=== PATIENT | female | born 1980 | race Caucasian/White ===

== ENCOUNTER → 2017-01-19 | Outpatient (CLI) | payer BC ==
[~2017-01-19] MED LIST: AMPH10TA2 PO; AMPH20TA2 PO; FLUO10CA48 PO; LAMO100T16 PO; NORGTAB39 PO; SPR25 PO
--- NOTE | 2017-01-19 11:09 | DIAGNOSTIC IMAGING REPORT ---
LEFT WRIST MIN 3 VIEWS ROUTINE CLINICAL HISTORY: Left wrist pain status post trauma COMPARISON: None. DISCUSSION: No fractures or dislocations are visualized. IMPRESSION: No acute fractures or dislocations identified. Electronically signed by: Jurgen Richardson M.D. 01/19/2017 11:08 AM Dictated Date/Time: 01/19/2017 11:07 AM
== END | disposition home or self-care (01) ==
LOC: C.RAD1850 10:48
PROVIDERS: ATTEND Family Medicine
DX: S69.92XA Unspecified injury of left wrist, hand and finger(s), initial encounter (principal); M25.532 Pain in left wrist; X58.XXXA Exposure to other specified factors, initial encounter

== ENCOUNTER 2021-01-21 10:00 | Inpatient (IN) ==
[2021-01-21] MEDS ORDERED: OXYTOCIN 30 UNITS/500 ML BAG IV PRN (10:04)
[2021-01-21] MEDS ORDERED: PENICILLIN G POTASSIUM 6 MU in DEXTROSE 5% 250 ML IV ONE (10:15)
[2021-01-21] MEDS ORDERED: MAG SULFATE 4GM BOLUS FROM BAG IV ONE (10:15)
[2021-01-21 10:28] LABS: Hematocrit (blood only) 38.6 % (37-47); Hemoglobin 12.8 g/dL (12.0-16.0); Mean Corpuscular Hgb Conc 33.2 g/dL (32-36); Mean Corpuscular Volume 87.3 fL (80-100); Mean Platelet Volume 9.3 fL (7.4-10.4); Platelet Count 373 K/uL (130-400); RDW Coefficient of Variation 13.5 % (11.5-14.5); RDW Standard Deviation 42.5 fL (36.4-46.3); Red Blood Count 4.42 M/uL (4.2-5.4); White Blood Count 10.12 K/uL (4.8-10.8)
--- NOTE | 2021-01-21 10:40 | History & Physical Report ---
Date of Service January 21, 2021 Assessment & Plan Admission and Anticipated Discharge Date Admission Date: January 21, 2021 40 yo female with IUP at 37 weeks with chronic hypertension and super imposed PIH with 2+ proteinuria at L&D with BP's that meet severe criteria PIH labs pending. will begin IOL with cervical marin and Pitocin will start MgSO4 prophylaxis as well. antihypertensives as needed History of Present Illness Primary Care Provider: NO PCP Patient is a 40 yo female EDC 02/05/21 IVF , who presented for scheduled OB visit and was noted to have elevated BP's of 160/110 twice. She has had some mild headaches, stomach upset and nausea recently but no specific epigastric pain or shoulder pain. has been complicated by GDM on insulin for which her sugars have been reasonably controlled. EFW and AC were in 80%tile range at 36 weeks. She also has chronic Hypertension on Nifedipine.BP's have been good until today. She also has hypothyroidism treated with replacement thyroxine. GBS Positive Allergies Allergy/AdvReac Type Severity Reaction Status Date / Time amitriptyline Allergy Verified 01/21/21 09:02 Home Medications Medication Instructions Recorded Confirmed Type AMPHETAMINE-DEXTROAMPHETAMINE 10MG 10 mg PO DAILY PRN #0 tab 05/02/16 01/21/21 History (ADDERALL 10MG) aspirin 81 mg tablet,delayed 81 mg PO DAILY 07/16/20 01/21/21 History release cyclobenzaprine 10 mg tablet 10 mg PO HS 07/16/20 01/21/21 History levothyroxine 50 mcg tablet 50 mcg PO DAILY 07/16/20 01/21/21 History nifedipine 30 mg tablet,extended 30 mg PO DAILY 07/16/20 01/21/21 History release prenat.vits,rick,khj-itto-ewnpc 1 tab PO DAILY 07/16/20 01/21/21 History sertraline 100 mg tablet 100 mg PO DAILY 07/16/20 01/21/21 History acetone (urine) test #50 ea 09/26/20 01/21/21 Rx blood sugar diagnostic #150 ea 09/26/20 01/21/21 Rx blood-glucose meter #1 ea 09/26/20 01/21/21 Rx lancets #102 ea 09/26/20 01/21/21 Rx insulin syringe-needle U-100 0.3 #50 ea 12/19/20 01/21/21 Rx mL 31 gauge x 11/30" Patient History Medical History Hx of migraines Surgical History History of hysteroscopy Family History Sister Depression Grandmother (Maternal) Epilepsy Pancreatic cancer Father Glaucoma Grandmother (Paternal) Breast cancer Social History Smoking Status: Never smoker marital status: marital status details: Stas (44) [phone] Current Living Situation: Spouse Current Living Situation Comment: lives with spouse, 1 dog. current occupational status: employed current occupation: Psychologist at [employer] Review of Systems All systems reviewed & are unremarkable except as noted in HPI & below Physical Exam Constitutional: WD/WN, vitals as above Respiratory: normal respiratory effort, lungs clear to auscultation Cardiovascular: RRR, no murmur, no edema Gastrointestinal (Abdomen): normal bowel sounds, soft, nontender, no hepatosplenomegaly Psychiatric: A+Ox3, euthymic affect Genitourinary: OB Exam Abdomen: + vertex, + estimated weight (8-9 pounds) and + irregular contractions Manual OB Exam: + cervical dilation (closed), + cervical effacement 10% and + station high OB Exam Monitor Tracing: + external FHT monitor used, + external uterine monitor used, + category I and + normal FHT variability Results & Data ([facility]) Vital Signs (Past 12 Hours) Vital Signs Pulse BP 01/21/21 10:22 100 H 177/96 H 01/21/21 10:18 88 186/109 H 01/21/21 10:12 88 183/94 H Coding Level of Care Code None
[2021-01-21] MEDS: LACTATED RINGER'S 1,000 ML IV PRN (10:51)
[2021-01-21] MEDS: MAGNESIUM SULFATE / WTR 40 GM/1,000 ML BAG IV SCH (10:53)
[2021-01-21 10:59] LABS: Alanine Aminotransferase 16 U/L (12-78); Albumin Level 2.4 gm/dl (3.4-5.0); Aspartate Aminotransferase 19 U/L (15-37); BUN Creatinine Ratio 22.5 (10-20); Bilirubin Direct < 0.1 mg/dl (0-0.2); Blood Urea Nitrogen 14 mg/dl (7-18); Calcium 8.7 mg/dl (8.5-10.1); Carbon Dioxide 26 mmol/L (21-32); Chloride 106 mmol/L (98-107); Est GFR (African American) 129.4 ml/min; Est GFR (Non-African American) 111.6 ml/min; Glucose 70 mg/dl (70-99); Potassium 4.3 mmol/L (3.5-5.1); Sodium 136 mmol/L (136-145)
[2021-01-21 11:01] LABS: Albumin Globulin Ratio 0.6 (0.9-2); Alkaline Phosphatase 191 U/L (45-117); Bilirubin,Total 0.3 mg/dl (0.2-1); Globulin 3.9 gm/dl (2.5-4.0); Total Protein 6.3 gm/dl (6.4-8.2)
[2021-01-21] MEDS ORDERED: NIFEdipine 10 MG CAP PO STA ×4 (11:01→15:20)
[2021-01-21 11:09] LABS: Total Protein Urine Random 153.7 mg/dl (0-11.9)
[2021-01-21] MEDS: OXYTOCIN 30 UNITS/500 ML BAG IV PRN (13:10)
[2021-01-21] MEDS: PENICILLIN G POTASSIUM 3 MU in DEXTROSE 5% 100 ML IV PRN ×3 (16:00→23:49)
[2021-01-21] MEDS: ACETAMINOPHEN 325 MG TAB PO PRN (16:45)
[2021-01-21] MEDS: NIFEdipine EXTENDED REL 30 MG TABCR PO SCH (21:00)
[2021-01-21] MEDS ORDERED: LABETALOL HCL IV 5 MG/ML 20ML IV STA (22:20)
[2021-01-21] MEDS ORDERED: BUTORPHANOL TARTRATE 1 MG/ML VIAL ONE (22:23)
[2021-01-21] MEDS: BUTORPHANOL TARTRATE 1 MG/ML VIAL IV PRN (22:26)
--- NOTE | 2021-01-22 02:03 | Obstetrical Progress Note ---
Date of Service January 22, 2021 Assessment & Plan Admission and Anticipated Discharge Date Admission Date: January 21, 2021 Subjective had good relief from IV stadol. headache has returned but feels it may be related to weather changes and lack of food. no other PIH symptoms at this time BP responded well to IV labetalol Mijares balloon still in place but starting to pass through the cervix FHT's - Category 1 Mijares catheter removed cervix very soft/3-4/70/-3 continue IV pitocin induction per protocol will try to AROM once head descends more. Results & Data ([facility]) Vital Signs (Past 12 Hours) Vital Signs Temp Pulse Resp BP Pulse Ox 01/22/21 01:59 77 170/89 H 01/22/21 01:43 81 133/95 01/22/21 01:40 71 90 01/22/21 01:35 68 98 01/22/21 01:30 73 98 01/22/21 01:29 80 128/92 01/22/21 01:25 74 97 01/22/21 01:20 65 96 01/22/21 01:15 64 95 01/22/21 01:13 61 132/73 01/22/21 01:10 65 97 01/22/21 01:05 66 97 01/22/21 01:00 64 96 01/22/21 00:58 65 136/77 01/22/21 00:55 65 97 01/22/21 00:50 66 98 01/22/21 00:45 69 96 01/22/21 00:43 66 126/69 01/22/21 00:41 67 94 01/22/21 00:40 64 94 01/22/21 00:36 64 94 01/22/21 00:35 65 96 01/22/21 00:30 64 94 01/22/21 00:28 63 118/62 01/22/21 00:25 64 94 01/22/21 00:20 66 94 01/22/21 00:19 66 94 01/22/21 00:15 65 94 01/22/21 00:13 68 112/57 L 93 01/22/21 00:10 67 95 01/22/21 00:07 68 94 01/22/21 00:05 67 95 01/22/21 00:01 65 94 01/22/21 00:00 69 18 93 01/21/21 23:58 71 106/56 L 01/21/21 23:55 69 93 01/21/21 23:50 69 95 01/21/21 23:49 69 94 01/21/21 23:45 68 93 01/21/21 23:43 69 106/58 L 01/21/21 23:42 68 92 01/21/21 23:40 71 93 01/21/21 23:37 66 94 01/21/21 23:35 71 95 01/21/21 23:32 65 93 01/21/21 23:31 69 113/69 01/21/21 23:30 69 95 01/21/21 23:26 68 94 01/21/21 23:25 69 95 01/21/21 23:21 65 93 01/21/21 23:20 66 91 01/21/21 23:15 68 94 01/21/21 23:10 70 93 01/21/21 23:09 68 93 01/21/21 23:07 68 110/58 L 01/21/21 23:05 67 95 01/21/21 23:03 65 92 01/21/21 23:02 66 104/57 L 01/21/21 23:00 66 18 89 L 01/21/21 22:57 67 108/55 L 01/21/21 22:55 66 92 01/21/21 22:52 71 116/56 L 01/21/21 22:50 65 92 01/21/21 22:49 67 117/61 01/21/21 22:48 70 112/60 01/21/21 22:45 68 92 01/21/21 22:43 68 92 01/21/21 22:41 69 126/60 01/21/21 22:40 77 93 01/21/21 22:38 71 93 01/21/21 22:35 73 92 01/21/21 22:32 82 94 01/21/21 22:30 77 96 01/21/21 22:29 81 188/94 H 01/21/21 22:25 86 95 01/21/21 22:20 85 95 01/21/21 22:17 86 94 01/21/21 22:15 94 H 95 01/21/21 22:10 96 H 98 01/21/21 22:06 93 H 93 01/21/21 22:05 93 H 95 01/21/21 22:01 80 180/94 H 01/21/21 22:00 87 18 95 01/21/21 21:56 90 93 01/21/21 21:55 87 96 01/21/21 21:50 78 94 01/21/21 21:47 78 94 01/21/21 21:45 87 93 01/21/21 21:42 83 94 01/21/21 21:40 82 97 01/21/21 21:35 88 94 01/21/21 21:34 86 93 01/21/21 21:30 80 180/92 H 99 01/21/21 21:28 81 93 01/21/21 21:25 82 97 01/21/21 21:22 87 94 01/21/21 21:20 86 96 01/21/21 21:16 102 H 93 01/21/21 21:15 99 H 96 01/21/21 21:10 97 H 98 01/21/21 21:01 86 181/99 H 01/21/21 21:00 98.2 F 18 01/21/21 20:59 85 94 01/21/21 20:54 88 95 01/21/21 20:53 88 94 01/21/21 20:49 84 98 01/21/21 20:44 83 94 01/21/21 20:39 85 96 01/21/21 20:35 89 94 01/21/21 20:34 86 95 01/21/21 20:29 83 185/88 H 97 01/21/21 20:28 89 94 01/21/21 20:24 84 97 01/21/21 20:19 83 97 01/21/21 20:14 88 96 01/21/21 20:09 84 94 01/21/21 20:08 86 94 01/21/21 20:04 90 95 01/21/21 20:01 88 162/78 H 01/21/21 20:00 86 18 179/85 H 01/21/21 19:59 87 98 01/21/21 19:29 89 167/81 H 01/21/21 19:17 88 162/85 H 01/21/21 19:15 18 01/21/21 19:00 18 01/21/21 18:30 92 H 176/93 H 01/21/21 18:28 94 H 96 01/21/21 18:23 88 94 01/21/21 18:22 86 94 01/21/21 18:18 90 97 01/21/21 18:16 91 H 94 01/21/21 18:13 85 95 01/21/21 18:08 93 H 96 01/21/21 18:03 98 H 99 01/21/21 18:00 90 18 167/84 H 94 01/21/21 17:58 87 96 01/21/21 17:53 89 94 01/21/21 17:48 87 95 01/21/21 17:47 91 H 94 01/21/21 17:43 84 95 01/21/21 17:39 90 94 01/21/21 17:38 87 93 01/21/21 17:33 86 94 01/21/21 17:30 93 H 18 138/93 01/21/21 17:28 89 95 01/21/21 17:23 98 H 96 01/21/21 17:21 85 94 01/21/21 17:18 93 H 97 01/21/21 17:15 98.2 F 18 01/21/21 17:13 88 97 01/21/21 17:08 91 H 95 01/21/21 17:05 98 H 94 01/21/21 17:03 98 H 96 01/21/21 17:00 90 152/88 H 01/21/21 16:58 93 H 95 01/21/21 16:57 91 H 94 01/21/21 16:53 99 H 96 01/21/21 16:48 106 H 94 01/21/21 16:45 99 H 93 01/21/21 16:43 93 H 95 01/21/21 16:38 100 H 94 01/21/21 16:33 98 H 94 01/21/21 16:30 107 H 144/70 H 01/21/21 16:28 99 H 94 01/21/21 16:27 100 H 94 01/21/21 16:23 112 H 93 01/21/21 16:22 107 H 94 01/21/21 16:18 107 H 95 01/21/21 16:16 110 H 94 01/21/21 16:13 106 H 98 01/21/21 16:08 90 98 01/21/21 16:00 99 H 185/105 H 98 01/21/21 15:55 83 20 99 01/21/21 15:53 90 94 01/21/21 15:50 84 95 01/21/21 15:47 86 93 01/21/21 15:45 87 96 01/21/21 15:42 82 94 01/21/21 15:40 85 96 01/21/21 15:37 87 94 01/21/21 15:35 88 96 01/21/21 15:30 83 177/96 H 96 01/21/21 15:26 86 94 01/21/21 15:25 87 97 01/21/21 15:20 96 H 94 01/21/21 15:15 90 98 01/21/21 15:10 82 97 01/21/21 15:05 92 H 96 01/21/21 15:04 98.2 F 18 01/21/21 15:00 84 174/102 H 96 01/21/21 14:55 79 18 96 01/21/21 14:53 84 94 01/21/21 14:50 81 98 01/21/21 14:45 91 H 98 01/21/21 14:40 95 H 98 01/21/21 14:35 90 98 01/21/21 14:30 80 98 01/21/21 14:29 81 172/90 H 01/21/21 14:25 78 96 01/21/21 14:20 81 98 01/21/21 14:15 85 98 01/21/21 14:10 80 98 01/21/21 14:05 87 98 PG Care Time/CCT Total # of Minutes Spent Total Time Spent with Patient: Total time spent is greater than 50% in coordination of care (as documented) at patient's floor/unit and/or counseling patient: Coding Level of Care Code None
[2021-01-22] MEDS: LACTATED RINGER'S 1,000 ML IV PRN (02:59)
[2021-01-22] MEDS: BUTORPHANOL TARTRATE 1 MG/ML VIAL IV PRN ×2 (03:45→13:35)
[2021-01-22] MEDS: PENICILLIN G POTASSIUM 3 MU in DEXTROSE 5% 100 ML IV PRN ×4 (04:02→16:18)
[2021-01-22] MEDS: MAGNESIUM SULFATE / WTR 40 GM/1,000 ML BAG IV SCH ×2 (04:02→22:20)
[2021-01-22 06:32] LABS: Basophils # (auto) 0.02 K/uL (0-0.2); Basophils % (auto) 0.2 %; Eosinophils # (auto) 0.07 K/uL (0-0.5); Eosinophils % (auto) 0.7 %; Hematocrit (blood only) 38.1 % (37-47); Hemoglobin 12.3 g/dL (12.0-16.0); Immature Granulocytes # (auto) 0.05 K/uL (0.00-0.02); Immature Granulocytes % (auto) 0.5 %; Lymphocytes # (auto) 0.98 K/uL (1.2-3.4); Lymphocytes % (auto) 9.4 %; Mean Corpuscular Hemoglobin 28.7 pg (25-34); Mean Corpuscular Hgb Conc 32.3 g/dL (32-36); Mean Platelet Volume 9.4 fL (7.4-10.4); Monocytes # (auto) 0.65 K/uL (0.11-0.59); Monocytes % (auto) 6.3 %; Neutrophils # (auto) 8.63 K/uL (1.4-6.5); Neutrophils % (auto) 82.9 %; Platelet Count 389 K/uL (130-400); RDW Coefficient of Variation 13.5 % (11.5-14.5); RDW Standard Deviation 43.4 fL (36.4-46.3); Red Blood Count 4.28 M/uL (4.2-5.4)
[2021-01-22 06:49] LABS: Creatinine Clr Calc Pharmacy 130.5 ml/min; Est GFR (Non-African American) 112.2 ml/min
[2021-01-22] MEDS: LEVOTHYROXINE SODIUM 50 MCG TABLET PO SCH (07:01)
--- NOTE | 2021-01-22 08:45 | Obstetrical Progress Note ---
Date of Service January 22, 2021 Assessment & Plan Admission and Anticipated Discharge Date Admission Date: January 21, 2021 PIH labs are normal I attempted to AROM but I was unsuccessful continue with pitocin induction- AROM when feasible epidural when requested. Subjective continues to have a headache which is similar to the headaches she gets at home. Nothing seems to help them and they usually resolve after 2-3 days. IV stadol has been the first med that has helped. no other PIH symptoms pitocin stopped for 30 minutes after being at 30 milliunits overnight. Pitocin has now been re-started. No SPROM Review of Systems Review of Systems: All systems reviewed & are unremarkable except as noted in HPI & below Physical Exam Constitutional: WD/WN, vitals as above Psychiatric: A+Ox3, euthymic affect Genitourinary: OB Exam Abdomen: + vertex Manual OB Exam: + cervical dilation 3 cm, + cervical effacement (soft ) 70% and + station (-3 ) OB Exam Monitor Tracing: + external FHT monitor used, + external uterine monitor used, + category I and + normal FHT variability Results & Data ([facility]) Vital Signs (Past 12 Hours) Vital Signs Temp Pulse Resp BP Pulse Ox 01/22/21 08:37 77 97 01/22/21 08:32 73 98 01/22/21 08:27 77 97 01/22/21 08:24 86 87 L 01/22/21 08:22 80 97 01/22/21 08:18 68 18 134/80 01/22/21 08:17 70 95 01/22/21 08:12 72 97 01/22/21 08:07 76 98 01/22/21 08:02 73 97 01/22/21 08:00 20 01/22/21 07:57 76 96 01/22/21 07:52 74 95 01/22/21 07:48 81 149/80 H 01/22/21 07:47 75 97 01/22/21 07:34 73 98 01/22/21 07:29 77 99 01/22/21 07:24 71 97 01/22/21 07:19 68 98 01/22/21 07:18 68 142/81 H 92 01/22/21 07:14 71 97 01/22/21 07:09 73 97 01/22/21 07:04 72 95 01/22/21 07:01 97.7 F 20 01/22/21 06:59 78 97 01/22/21 06:55 70 94 01/22/21 06:54 72 97 01/22/21 06:49 70 96 01/22/21 06:48 68 139/81 08 06:44 70 98 01/22/21 06:39 75 99 01/22/21 06:34 80 95 01/22/21 06:31 84 94 01/22/21 06:29 77 96 01/22/21 06:24 78 152/94 H 97 01/22/21 06:10 75 99 01/22/21 06:05 74 98 01/22/21 06:00 74 96 01/22/21 05:57 71 94 01/22/21 05:55 74 95 01/22/21 05:51 72 94 01/22/21 05:50 68 95 01/22/21 05:48 75 133/65 01/22/21 05:45 71 95 01/22/21 05:43 72 94 01/22/21 05:40 74 95 08 05:35 75 94 01/22/21 05:34 72 94 08 05:30 73 94 08 05:25 73 97 08 05:24 72 93 08 05:20 71 95 08 05:19 74 133/70 08 05:17 70 94 08 05:15 69 96 0708 05:10 69 94 08 05:05 69 94 08 05:00 69 18 96 08 04:59 76 94 08 04:55 70 95 08 04:53 68 94 0708 04:50 68 95 07/08/21 04:48 67 131/70 0708 04:45 67 94 0708 04:40 68 95 07/08/ 04:38 67 94 0708/21 04:35 68 95 08/ 04:32 67 94 0708/ 04:30 65 95 0708 04:25 69 94 0708 04:20 67 95 08 04:19 68 94 07/08/ 04:18 67 129/68 01/22/21 04:15 69 93 01/22/21 04:14 67 94 01/22/21 04:10 69 94 01/22/21 04:06 68 93 01/22/21 04:05 73 128/64 95 01/22/21 04:00 67 18 93 01/22/21 03:55 67 93 01/22/21 03:54 67 93 01/22/21 03:50 69 94 01/22/21 03:48 72 94 01/22/21 03:45 74 98 01/22/21 03:40 74 96 01/22/21 03:35 75 97 01/22/21 03:30 84 98 01/22/21 03:22 18 01/22/21 03:18 74 138/88 01/22/21 03:15 72 96 01/22/21 03:13 69 94 01/22/21 03:10 73 97 01/22/21 03:05 70 96 01/22/21 03:00 68 18 97 01/22/21 02:59 69 158/84 H 01/22/21 02:55 72 96 01/22/21 02:50 75 98 01/22/21 02:49 75 163/105 H 01/22/21 02:45 72 98 01/22/21 02:40 72 97 01/22/21 02:35 73 98 01/22/21 02:30 69 99 01/22/21 02:25 70 99 01/22/21 02:24 76 91 01/22/21 02:20 70 99 01/22/21 02:15 70 98 01/22/21 02:14 71 160/92 H 01/22/21 02:10 74 98 01/22/21 02:07 70 156/88 H 01/22/21 02:05 82 97 01/22/21 02:00 97.7 F 71 18 98 01/22/21 01:59 77 170/89 H 01/22/21 01:43 81 133/95 01/22/21 01:40 71 90 01/22/21 01:35 68 98 08 01:30 73 98 08 01:29 80 128/92 01/22/21 01:25 74 97 08 01:20 65 96 07/08/21 01:15 64 95 01/22/21 01:13 61 132/73 01/22/21 01:10 65 97 01/22/21 01:05 66 97 01/22/21 01:00 64 96 01/22/21 00:58 65 136/77 01/22/21 00:55 65 97 01/22/21 00:50 66 98 01/22/21 00:45 69 96 01/22/21 00:43 66 126/69 01/22/21 00:41 67 94 01/22/21 00:40 64 94 01/22/21 00:36 64 94 01/22/21 00:35 65 96 01/22/21 00:30 64 94 01/22/21 00:28 63 118/62 01/22/21 00:25 64 94 01/22/21 00:20 66 94 01/22/21 00:19 66 94 01/22/21 00:15 65 94 01/22/21 00:13 68 112/57 L 93 01/22/21 00:10 67 95 01/22/21 00:07 68 94 01/22/21 00:05 67 95 01/22/21 00:01 65 94 01/22/21 00:00 69 18 93 01/21/21 23:58 71 106/56 L 01/21/21 23:55 69 93 01/21/21 23:50 69 95 01/21/21 23:49 69 94 01/21/21 23:45 68 93 01/21/21 23:43 69 106/58 L 01/21/21 23:42 68 92 01/21/21 23:40 71 93 01/21/21 23:37 66 94 01/21/21 23:35 71 95 01/21/21 23:32 65 93 01/21/21 23:31 69 113/69 01/21/21 23:30 69 95 01/21/21 23:26 68 94 01/21/21 23:25 69 95 01/21/21 23:21 65 93 01/21/21 23:20 66 91 01/21/21 23:15 68 94 01/21/21 23:10 70 93 01/21/21 23:09 68 93 01/21/21 23:07 68 110/58 L 01/21/21 23:05 67 95 01/21/21 23:03 65 92 01/21/21 23:02 66 104/57 L 01/21/21 23:00 66 18 89 L 01/21/21 22:57 67 108/55 L 01/21/21 22:55 66 92 01/21/21 22:52 71 116/56 L 01/21/21 22:50 65 92 01/21/21 22:49 67 117/61 01/21/21 22:48 70 112/60 01/21/21 22:45 68 92 01/21/21 22:43 68 92 01/21/21 22:41 69 126/60 01/21/21 22:40 77 93 01/21/21 22:38 71 93 01/21/21 22:35 73 92 01/21/21 22:32 82 94 01/21/21 22:30 77 96 01/21/21 22:29 81 188/94 H 01/21/21 22:25 86 95 01/21/21 22:20 85 95 01/21/21 22:17 86 94 01/21/21 22:15 94 H 95 01/21/21 22:10 96 H 98 01/21/21 22:06 93 H 93 01/21/21 22:05 93 H 95 01/21/21 22:01 80 180/94 H 01/21/21 22:00 87 18 95 01/21/21 21:56 90 93 01/21/21 21:55 87 96 01/21/21 21:50 78 94 01/21/21 21:47 78 94 01/21/21 21:45 87 93 01/21/21 21:42 83 94 01/21/21 21:40 82 97 01/21/21 21:35 88 94 01/21/21 21:34 86 93 01/21/21 21:30 80 180/92 H 99 01/21/21 21:28 81 93 01/21/21 21:25 82 97 01/21/21 21:22 87 94 01/21/21 21:20 86 96 01/21/21 21:16 102 H 93 01/21/21 21:15 99 H 96 01/21/21 21:10 97 H 98 01/21/21 21:01 86 181/99 H 01/21/21 21:00 98.2 F 18 01/21/21 20:59 85 94 01/21/21 20:54 88 95 01/21/21 20:53 88 94 01/21/21 20:49 84 98 01/21/21 20:44 83 94 PG Care Time/CCT Total # of Minutes Spent Total Time Spent with Patient: Total time spent is greater than 50% in coordination of care (as documented) at patient's floor/unit and/or counseling patient: Coding Level of Care Code None
[2021-01-22] MEDS ORDERED: NIFEdipine EXTENDED REL 30 MG TABCR PO SCH (09:00)
[2021-01-22] MEDS: SERTRALINE HCL 100 MG TABLET PO SCH (09:17)
[2021-01-22] MEDS ORDERED: ONDANSETRON INJ 2 MG/ML 2 ML VIAL IV PRN ×2 (10:16→18:29)
[2021-01-22] MEDS: OXYTOCIN 30 UNITS/500 ML BAG IV PRN (13:34)
--- NOTE | 2021-01-22 17:01 | Anesthesiology Consultation ---
Date of Service January 22, 2021 Assessment & Plan Chart Review Chart Review: Acceptable Risk for Surgery and Patient NOT seen in Pre Admission Testing Consults Requested none ASA [id number] Proposed Anesthesia Anesthesia Type: Spinal History Height/Weight Height: 5 ft 4 in Weight: 92.079 kg Allergies Allergy/AdvReac Type Severity Reaction Status Date / Time amitriptyline Allergy Verified 01/21/21 09:02 Medications Home Medications Medication Instructions Recorded Confirmed Last Taken AMPHETAMINE-DEXTROAMPHETAMINE 10MG 10 mg PO DAILY PRN #0 tab 05/02/16 01/21/21 01/20/21 09:00 (ADDERALL 10MG) aspirin 81 mg tablet,delayed 81 mg PO DAILY 07/16/20 01/21/21 01/20/21 09:00 release cyclobenzaprine 10 mg tablet 10 mg PO HS 07/16/20 01/21/21 01/20/21 21:00 levothyroxine 50 mcg tablet 50 mcg PO DAILY 07/16/20 01/21/21 01/20/21 09:00 nifedipine 30 mg tablet,extended 30 mg PO DAILY 07/16/20 01/21/21 01/20/21 21:00 release prenat.vits,rick,eni-gfkg-mlgvr 1 tab PO DAILY 07/16/20 01/21/21 01/20/21 21:00 sertraline 100 mg tablet 100 mg PO DAILY 07/16/20 01/21/21 01/20/21 09:00 acetone (urine) test #50 ea 09/26/20 01/21/21 Unknown blood sugar diagnostic #150 ea 09/26/20 01/21/21 Unknown blood-glucose meter #1 ea 09/26/20 01/21/21 Unknown lancets #102 ea 09/26/20 01/21/21 Unknown insulin syringe-needle U-100 0.3 #50 ea 12/19/20 01/21/21 Unknown mL 31 gauge x 5/16" Active Medications Generic Name Dose Route Start Last Admin Trade Name Freq PRN Reason Stop Dose Admin Acetaminophen 650 mg 01/21/21 16:13 01/21/21 16:45 Acetaminophen 325 Mg Tab PO 02/20/21 16:12 650 mg Q6H PRN Administration Pain Butorphanol Tartrate 1 mg 01/21/21 22:20 01/22/21 13:35 Butorphanol Tartrate 1 Mg/Ml Vial IV 02/20/21 22:19 1 mg Q2HWA PRN Administration Pain Penicillin G Potassium 3 mu/ 106 mls @ 100 mls/hr 01/21/21 14:15 01/22/21 16:18 Dextrose IV 01/31/21 14:14 100 mls/hr Q4H PRN Administration Give until delivery Magnesium Sulfate 40 gm in 1,000 mls @ 50 mls/hr 01/21/21 10:30 01/22/21 07:13 Magnesium Sulfate / Wtr IV 02/20/21 10:29 50 mls/hr .Q20H JULIETA Infusion Oxytocin 30 units in 500 mls @ 0 mls/hr 01/21/21 10:04 01/22/21 16:51 Pitocin IV 01/23/21 10:03 0 units/hr .Q0M PRN 0 mls/hr Labor Induction/Augmentation Titration Protocol 0 UNITS/HR Lactated Ringer's 1,000 mls @ 125 mls/hr 01/21/21 10:04 01/22/21 13:00 Lr IV 01/23/21 10:03 75 mls/hr .Q8H PRN Infusion L&D Protocol Protocol Levothyroxine Sodium 50 mcg 01/22/21 06:30 01/22/21 07:01 Levothyroxine Sodium 50 Mcg Tablet PO 02/21/21 06:29 50 mcg DAILYBB JULIETA Administration Nifedipine 30 mg 01/21/21 21:00 01/21/21 21:00 Nifedipine Extended Rel 30 Mg Tabcr PO 02/20/21 20:59 30 mg HS JULIETA Administration Ondansetron HCl 4 mg 01/22/21 10:16 01/22/21 10:30 Ondansetron Inj 2 Mg/Ml 2 Ml Vial IV 02/21/21 10:15 4 mg Q4H PRN Administration Nausea Sertraline HCl 100 mg 01/22/21 09:00 01/22/21 09:17 Sertraline Hcl 100 Mg Tablet PO 02/21/21 08:59 100 mg DAILY JULIETA Administration Past Medical History Medical History Anxiety Hx of migraines Hypothyroidism Narcolepsy and cataplexy Exercise / Class Metabolic Activity II 4-5 Yardwork/Stairs/Walk up hill Past Family History Family History Sister Depression Grandmother (Maternal) Epilepsy Pancreatic cancer Father Glaucoma Grandmother (Paternal) Breast cancer Past Surgical History Surgical History History of hysteroscopy Past Anesthesia History No Hx of Anesthesia Complications and No Family Hx of Anesthesia Complications History of PONV No Hx of PONV and No Hx of Motion Sickness Social History Smoking Status: Never smoker Hx Alcohol Use: No Hx Substance Use: No Physical Exam Vital Signs Last Vital Signs Temp 36.4 C L 01/22/21 15:00 Pulse 83 01/22/21 16:57 Resp 18 01/22/21 16:03 BP 175/91 H 01/22/21 16:48 Pulse Ox 94 01/22/21 16:57 Testing Laboratory Results 01/22/21 06:07 01/22/21 06:07 01/22/21 01/22/21 01/22/21 13:58 10:30 07:30 POC Glucose 79 81 81 01/22/21 05:24 POC Glucose 105 H
[2021-01-22] MEDS ORDERED: CITRIC ACID/SODIUM CITRATE 15 ML UDC ONE (17:14)
[2021-01-22] MEDS ORDERED: AZITHROMYCIN 500 MG in DEXTROSE 5% 250 ML IV ONE (17:30)
[2021-01-22] MEDS ORDERED: OXYTOCIN 10 UNITS/ML VIAL ONE (17:40)
[2021-01-22] MEDS ORDERED: PHENYLEPHRINE 100MCG/ML 5ML SYR ONE (17:43)
[2021-01-22] MEDS ORDERED: fentaNYL citrate 100 MCG/2 ML VIAL ONE (17:44)
[2021-01-22] MEDS ORDERED: MoRPHine SULFATE PF 1 MG/ML 10 ML AMP/VIAL ONE (17:45)
[2021-01-22] MEDS ORDERED: NALOXONE HCL 0.08 MG in SYRINGE 1.8 ML IV PRN (18:29)
[2021-01-22] MEDS ORDERED: NALOXONE HCL 1 MG in SODIUM CHLORIDE 0.9% 1000ML 1,000 ML IV PRN (18:29)
[2021-01-22] MEDS ORDERED: NALOXONE HCL 0.4 MG/1 ML VIAL/CARP IV PRN (18:29)
[2021-01-22] MEDS ORDERED: LACTATED RINGER'S 500 ML IV PRN (18:29)
[2021-01-22] MEDS ORDERED: ePHEDrine sulfate 50 MG/ML AMP IV PRN (18:29)
[2021-01-22] MEDS ORDERED: PROMETHAZINE HCL 25 MG in SODIUM CHLORIDE 0.9% 50 ML IV PRN (18:29)
[2021-01-22] MEDS ORDERED: MoRPHine SULFATE PF 1 MG/ML 10 ML AMP/VIAL INT SPINAL ONE (18:29)
[2021-01-22] MEDS ORDERED: diphenhydrAMINE 50 MG/ML VIAL IV PRN (18:29)
[2021-01-22] MEDS ORDERED: NALBUPHINE HCL INJ 10 MG/ML AMP IV PRN (18:29)
[2021-01-22] MEDS ORDERED: NO NARCOTICS OR SEDATIVES SCH (18:30)
[2021-01-22] MEDS ORDERED: SODIUM CHLORIDE 0.9% 1000ML 1,000 ML IV SCH (18:30)
[2021-01-22] MEDS ORDERED: ePHEDrine sulfate 50 MG/ML SYR ONE (18:35)
[2021-01-22] MEDS ORDERED: METHYLERGONOVINE MALEATE 0.2 MG/ML AMP ONE (18:37)
[2021-01-22] MEDS ORDERED: KETOROLAC 30 MG/ML VIAL ONE (18:49)
[2021-01-22] MEDS ORDERED: ONDANSETRON INJ 2 MG/ML 2 ML VIAL ONE (18:49)
[2021-01-22] MEDS: miSOPROStoL 200 MCG TAB PR ONE (18:57)
[2021-01-22] MEDS ORDERED: SUPERCREAM 0.870% 15 GM JAR EXT PRN (19:17)
[2021-01-22] MEDS ORDERED: MAGNESIUM HYDROXIDE SUSP 30 ML UDC PO PRN (19:17)
[2021-01-22] MEDS ORDERED: BENZOCAINE 20% AER SPR 82.5 GM CAN EXT PRN (19:17)
[2021-01-22] MEDS ORDERED: DIPHTHERIA/TETANUS/PERTUSSIS 0.5 ML SYR/VIAL IM ONE (19:17)
[2021-01-22] MEDS ORDERED: HYDROCORTISONE ACETATE 25 MG SUPP PR PRN (19:17)
[2021-01-22] MEDS ORDERED: SENNA 8.6 MG TAB PO PRN (19:17)
--- NOTE | 2021-01-22 19:17 | Post Operative Brief Note ---
PG Immediate Post Op with CF Date of Surgery January 22, 2021 I identified the patient and participated in the time-out.: Yes Procedure Surgeon Yvan Kate MD pLTCS Early term Failure to progress. EBL: 500mL Car Sh[address] Dr Watkins Estimated Blood Loss 500 Findings Consistent with Post-Op Diagnosis OB Procedure charges OB Charges 17623 C/S
[2021-01-22] MEDS ORDERED: miSOPROStoL 200 MCG TAB PR ONE (19:23)
[2021-01-22] MEDS ORDERED: LACTATED RINGER'S 1,000 ML IV SCH (19:30)
--- NOTE | 2021-01-22 20:23 | Operative Report (OR) ---
DATE OF PROCEDURE: 01/22/2021 PROCEDURE: Primary low transverse section. SURGEON: Yvan Kate MD. INVASIVE PHYSICIAN: Perla Watkins MD PREOPERATIVE DIAGNOSES: 1. Single intrauterine at 38 weeks gestational age. 2. Chronic hypertension with superimposed preeclampsia with severe features. 3. Advanced maternal age. 4. Failed induction of labor. 5. Hypothyroid. 6. IVF . 7. Gestational diabetes, on insulin. POSTOPERATIVE DIAGNOSES: 1. Single intrauterine at 38 weeks gestational age. 2. Chronic hypertension with superimposed preeclampsia with severe features. 3. Advanced maternal age. 4. Failed induction of labor. 5. Hypothyroid. 6. IVF . 7. Gestational diabetes, on insulin. 8. Status post procedure. ESTIMATED BLOOD LOSS: 500 mL. DRAINS: Mijares catheter. FLUIDS: Continuous lactated Ringer. URINE OUTPUT: Per Mijares catheter. COMPLICATIONS: None. FINDINGS: Viable male with weight pending and Apgars of 8 and 9 at one and five minutes respe ctively. Normal-appearing uterus, bilateral ovaries and tubes. INDICATIONS: Yue is a 40-year-old G1, P0, admitted at 38 weeks gestational age with preeclampsia with severe features for induction of labor. The patient was initially closed, long and high. A Fo vance catheter was placed and was started on low-dose Pitocin. After the Mijares came out, the patient w as started on Pitocin per regular protocol. She was on mag through this entire time secondary to the preeclampsia with severe features. She received multiple doses of IV blood pressure medications to ultimately get her blood pressure under control. After the patient was on Pitocin, she was continuall y checked and was found to be too high for rupture. Ultimately, the patient was able to be ruptured and was ruptured for clear fluids. She ultimately maxed out Pitocin to 30, at which time it was cut in half and restarted half hour later at 15 and this time an IUPC was placed and the oxytocin was con tinued up to 40. The patient was noted to only have contractions about 1 every 7-8 minutes and MVU w as noted to be relatively minimal. A discussion was had with Yue and her partner as far as the d ecision for the delivery course. After a thorough discussion of available options, the patient opted to proceed with a primary low transverse section. DESCRIPTION OF PROCEDURE: The patient was taken to the operating room after consents were ensured. Upon presentation, she was properly identified. Spinal anesthesia was obtained without difficulty. The patient was then prepped and draped in normal sterile fashion. A preprocedural timeout was perf ormed. A Pfannenstiel incision was then made with a knife and was carried down to the underlying fascia with the Bovie and blunt dissection. The fascia was nicked in the midline with a knife and extended in e ach direction with Mayos and pickups. The superior aspect of the fascia was grasped with Kochers x2, elevated off the underlying rectus muscles using blunt dissection. The inferior aspect of the fasci a was grasped with Kochers x2 and elevated off the underlying rectus muscles using blunt dissection. Midline was then entered bluntly, placed on stretch to provide adequate room for delivery. Bladder blade was inserted and a bladder flap was created. A low transverse uterine incision was then made with a knife. Head of the was noted to be in cephalic position and was delivered through the hysterotomy without difficulty, body and shoulders q uickly followed. was noted to be vigorous soon after delivery and a 1 minute delayed cord cl amping was initiated. Cord was then double clamped and cut. was taken to the waiting nurser y staff. Cord blood was obtained. Attention was then turned to delivery of the placenta, which was delivered intact, 3-vessel cord, gentle cord traction. The uterus was then exteriorized. Several passes were made inside to remove any remaining membranes with wet lap until 2 negative passes were noted. The hysterotomy was then reapproximated with 0 Vicr yl in continuous running locked stitch. A second imbricating layer was performed. The posterior cul -de-sac was cleaned of clots and debris. Uterus returned to maternal abdomen. Right and left paraco lic gutters were cleaned of clots and debris. Uterus was inspected and noted to be hemostatic. The subcutaneous fascial and muscle layers were inspected and noted to be hemostatic. The fascia was then reapproximated with 0 Vicryl in continuous running stitch. Subcutaneous layers were reapproxim ated in 2 layers with 2-0 plain in continuous running stitch. The skin was reapproximated with 3-0 V icryl on a Home needle in subcuticular stitch. Dermabond was placed on top, 800 mcg of Cytotec were placed per rectum at the completion of the case. Both mother and were stable in the immedia te postoperative period. Job ID: [id number]
--- NOTE | 2021-01-22 20:28 | Anesthesiology Progress Note ---
Date of Service January 22, 2021 Anesthesia Post Procedure Vital Signs Vital Signs: Temp Pulse Resp BP Pulse Ox 01/22/21 20:22 78 92 01/22/21 20:19 78 105/57 L 01/22/21 20:17 82 94 01/22/21 20:12 80 87 L 01/22/21 17:48 83 144/87 H 01/22/21 17:44 78 95 01/22/21 17:39 79 98 01/22/21 17:34 87 97 01/22/21 17:29 77 98 01/22/21 17:24 80 95 01/22/21 17:19 83 95 01/22/21 17:18 36.4 C L 80 18 143/91 H 01/22/21 17:14 80 98 01/22/21 17:09 81 97 01/22/21 17:02 85 96 01/22/21 17:00 36.4 C L 20 01/22/21 16:57 83 94 01/22/21 16:52 84 100 01/22/21 16:48 83 175/91 H 01/22/21 16:47 95 H 99 01/22/21 16:42 73 96 01/22/21 16:37 72 96 01/22/21 16:32 73 96 01/22/21 16:27 74 98 01/22/21 16:22 75 98 01/22/21 16:18 69 160/85 H 01/22/21 16:17 78 97 01/22/21 16:12 79 96 01/22/21 16:07 76 96 01/22/21 16:03 18 01/22/21 16:02 75 97 01/22/21 15:57 77 97 01/22/21 15:52 73 97 01/22/21 15:49 76 135/78 01/22/21 15:47 73 97 01/22/21 15:42 73 97 01/22/21 15:37 72 98 01/22/21 15:32 74 96 01/22/21 15:27 74 97 01/22/21 15:22 71 97 01/22/21 15:18 72 139/80 01/22/21 15:17 72 94 01/22/21 15:12 67 94 01/22/21 15:07 64 96 01/22/21 15:02 71 97 01/22/21 15:00 36.4 C L 18 01/22/21 14:57 69 96 01/22/21 14:52 65 96 01/22/21 14:48 70 158/81 H 01/22/21 14:47 76 98 01/22/21 14:42 74 96 01/22/21 14:37 73 96 01/22/21 14:32 67 95 01/22/21 14:27 73 96 01/22/21 14:22 73 95 01/22/21 14:19 69 135/71 01/22/21 14:17 67 93 01/22/21 14:12 68 94 01/22/21 14:07 67 94 01/22/21 14:02 69 94 01/22/21 14:00 16 01/22/21 13:57 72 96 01/22/21 13:52 73 95 01/22/21 13:49 77 135/76 01/22/21 13:47 87 92 01/22/21 13:42 73 97 01/22/21 13:37 78 96 01/22/21 13:32 75 96 01/22/21 13:27 79 97 01/22/21 13:22 73 95 01/22/21 13:18 73 149/70 H 01/22/21 13:17 74 96 01/22/21 13:15 18 01/22/21 13:12 71 96 01/22/21 13:07 76 97 01/22/21 13:02 82 99 01/22/21 12:57 84 94 01/22/21 12:48 73 146/77 H 96 01/22/21 12:43 74 98 01/22/21 12:38 76 96 01/22/21 12:33 77 98 01/22/21 12:28 74 95 01/22/21 12:23 76 98 01/22/21 12:18 73 154/82 H 98 01/22/21 12:13 74 93 01/22/21 12:08 78 98 01/22/21 12:05 16 01/22/21 12:03 80 99 01/22/21 11:58 76 99 01/22/21 11:53 82 97 01/22/21 11:48 77 144/82 H 97 01/22/21 11:43 81 96 01/22/21 11:38 85 95 01/22/21 11:33 78 96 01/22/21 11:28 79 94 01/22/21 11:23 82 98 01/22/21 11:18 78 126/70 93 01/22/21 11:16 75 94 01/22/21 11:13 75 96 01/22/21 11:08 80 96 01/22/21 11:03 76 97 01/22/21 11:02 16 01/22/21 10:58 74 97 01/22/21 10:53 75 96 01/22/21 10:48 36.4 C L 76 18 150/78 H 97 01/22/21 10:43 93 H 97 01/22/21 10:38 80 96 01/22/21 10:34 72 152/80 H 01/22/21 10:33 81 99 01/22/21 10:28 76 99 01/22/21 10:27 90 165/95 H 01/22/21 10:25 100 H 94 01/22/21 10:23 106 H 95 01/22/21 10:18 83 175/98 H 98 01/22/21 10:13 80 98 01/22/21 10:07 87 98 01/22/21 10:02 72 97 01/22/21 10:00 18 01/22/21 09:57 72 16 97 01/22/21 09:52 81 97 01/22/21 09:48 77 147/87 H 01/22/21 09:47 77 98 01/22/21 09:45 78 94 01/22/21 09:42 73 97 01/22/21 09:37 71 97 01/22/21 09:32 73 96 01/22/21 09:27 73 97 01/22/21 09:22 71 95 01/22/21 09:19 71 144/81 H 01/22/21 09:17 70 97 01/22/21 09:12 71 95 01/22/21 09:08 73 94 01/22/21 09:07 71 96 01/22/21 09:02 72 96 01/22/21 09:00 18 01/22/21 08:59 75 93 01/22/21 08:57 73 96 01/22/21 08:52 71 97 01/22/21 08:48 69 141/85 H 01/22/21 08:47 70 95 07/08/21 08:42 79 94 01/22/21 08:37 77 97 01/22/21 08:32 73 98 01/22/21 08:27 77 97 01/22/21 08:24 86 87 L 01/22/21 08:22 80 97 01/22/21 08:18 68 18 134/80 01/22/21 08:17 70 95 01/22/21 08:12 72 97 01/22/21 08:07 76 98 01/22/21 08:02 73 97 01/22/21 08:00 20 01/22/21 07:57 76 96 01/22/21 07:52 74 95 01/22/21 07:48 81 149/80 H 01/22/21 07:47 75 97 01/22/21 07:34 73 98 01/22/21 07:29 77 99 01/22/21 07:24 71 97 01/22/21 07:20 18 01/22/21 07:19 68 98 01/22/21 07:18 68 142/81 H 92 01/22/21 07:14 71 97 01/22/21 07:09 73 97 01/22/21 07:04 72 95 01/22/21 07:01 36.5 C 20 01/22/21 06:59 78 97 01/22/21 06:55 70 94 01/22/21 06:54 72 97 01/22/21 06:49 70 96 01/22/21 06:48 68 139/81 01/22/21 06:44 70 98 01/22/21 06:39 75 99 01/22/21 06:34 80 95 01/22/21 06:31 84 94 01/22/21 06:29 77 96 01/22/21 06:24 78 152/94 H 97 08 06:10 75 99 08 06:05 74 98 08 06:00 74 96 01/22/21 05:57 71 94 08 05:55 74 95 01/22/21 05:51 72 94 08 05:50 68 95 08 05:48 75 133/65 0708 05:45 71 95 08 05:43 72 94 01/22/21 05:40 74 95 07/08/21 05:35 75 94 01/22/21 05:34 72 94 01/22/21 05:30 73 94 01/22/21 05:25 73 97 01/22/21 05:24 72 93 08 05:20 71 95 01/22/21 05:19 74 133/70 01/22/21 05:17 70 94 01/22/21 05:15 69 96 01/22/21 05:10 69 94 01/22/21 05:05 69 94 01/22/21 05:00 69 18 96 01/22/21 04:59 76 94 01/22/21 04:55 70 95 01/22/21 04:53 68 94 01/22/21 04:50 68 95 01/22/21 04:48 67 131/70 01/22/21 04:45 67 94 01/22/21 04:40 68 95 01/22/21 04:38 67 94 01/22/21 04:35 68 95 01/22/21 04:32 67 94 01/22/21 04:30 65 95 01/22/21 04:25 69 94 01/22/21 04:20 67 95 01/22/21 04:19 68 94 01/22/21 04:18 67 129/68 01/22/21 04:15 69 93 01/22/21 04:14 67 94 01/22/21 04:10 69 94 01/22/21 04:06 68 93 08 04:05 73 128/64 95 01/22/21 04:00 67 18 93 01/22/21 03:55 67 93 01/22/21 03:54 67 93 01/22/21 03:50 69 94 01/22/21 03:48 72 94 01/22/21 03:45 74 98 08 03:40 74 96 08 03:35 75 97 08 03:30 84 98 01/22/21 03:22 18 01/22/21 03:18 74 138/88 01/22/21 03:15 72 96 0708 03:13 69 94 08 03:10 73 97 08 03:05 70 96 01/22/21 03:00 68 18 97 01/22/21 02:59 69 158/84 H 01/22/21 02:55 72 96 01/22/21 02:50 75 98 01/22/21 02:49 75 163/105 H 01/22/21 02:45 72 98 01/22/21 02:40 72 97 01/22/21 02:35 73 98 01/22/21 02:30 69 99 01/22/21 02:25 70 99 01/22/21 02:24 76 91 01/22/21 02:20 70 99 01/22/21 02:15 70 98 01/22/21 02:14 71 160/92 H 01/22/21 02:10 74 98 01/22/21 02:07 70 156/88 H 01/22/21 02:05 82 97 01/22/21 02:00 36.5 C 71 18 98 01/22/21 01:59 77 170/89 H 01/22/21 01:43 81 133/95 01/22/21 01:40 71 90 01/22/21 01:35 68 98 01/22/21 01:30 73 98 01/22/21 01:29 80 128/92 01/22/21 01:25 74 97 01/22/21 01:20 65 96 01/22/21 01:15 64 95 01/22/21 01:13 61 132/73 01/22/21 01:10 65 97 01/22/21 01:05 66 97 01/22/21 01:00 64 96 01/22/21 00:58 65 136/77 01/22/21 00:55 65 97 01/22/21 00:50 66 98 01/22/21 00:45 69 96 01/22/21 00:43 66 126/69 01/22/21 00:41 67 94 01/22/21 00:40 64 94 01/22/21 00:36 64 94 01/22/21 00:35 65 96 01/22/21 00:30 64 94 08 00:28 63 118/62 01/22/21 00:25 64 94 01/22/21 00:20 66 94 01/22/21 00:19 66 94 08 00:15 65 94 01/22/21 00:13 68 112/57 L 93 01/22/21 00:10 67 95 07/08/21 00:07 68 94 01/22/21 00:05 67 95 01/22/21 00:01 65 94 01/22/21 00:00 69 18 93 01/21/21 23:58 71 106/56 L 01/21/21 23:55 69 93 01/21/21 23:50 69 95 01/21/21 23:49 69 94 01/21/21 23:45 68 93 01/21/21 23:43 69 106/58 L 01/21/21 23:42 68 92 01/21/21 23:40 71 93 01/21/21 23:37 66 94 01/21/21 23:35 71 95 01/21/21 23:32 65 93 01/21/21 23:31 69 113/69 01/21/21 23:30 69 95 01/21/21 23:26 68 94 01/21/21 23:25 69 95 01/21/21 23:21 65 93 01/21/21 23:20 66 91 01/21/21 23:15 68 94 01/21/21 23:10 70 93 01/21/21 23:09 68 93 01/21/21 23:07 68 110/58 L 01/21/21 23:05 67 95 01/21/21 23:03 65 92 01/21/21 23:02 66 104/57 L 01/21/21 23:00 66 18 89 L 01/21/21 22:57 67 108/55 L 01/21/21 22:55 66 92 01/21/21 22:52 71 116/56 L 01/21/21 22:50 65 92 01/21/21 22:49 67 117/61 01/21/21 22:48 70 112/60 01/21/21 22:45 68 92 01/21/21 22:43 68 92 01/21/21 22:41 69 126/60 01/21/21 22:40 77 93 01/21/21 22:38 71 93 01/21/21 22:35 73 92 01/21/21 22:32 82 94 01/21/21 22:30 77 96 01/21/21 22:29 81 188/94 H 01/21/21 22:25 86 95 01/21/21 22:20 85 95 01/21/21 22:17 86 94 01/21/21 22:15 94 H 95 01/21/21 22:10 96 H 98 01/21/21 22:06 93 H 93 01/21/21 22:05 93 H 95 01/21/21 22:01 80 180/94 H 01/21/21 22:00 87 18 95 01/21/21 21:56 90 93 01/21/21 21:55 87 96 01/21/21 21:50 78 94 01/21/21 21:47 78 94 01/21/21 21:45 87 93 01/21/21 21:42 83 94 01/21/21 21:40 82 97 01/21/21 21:35 88 94 01/21/21 21:34 86 93 01/21/21 21:30 80 180/92 H 99 01/21/21 21:28 81 93 01/21/21 21:25 82 97 01/21/21 21:22 87 94 01/21/21 21:20 86 96 01/21/21 21:16 102 H 93 01/21/21 21:15 99 H 96 01/21/21 21:10 97 H 98 01/21/21 21:01 86 181/99 H 01/21/21 21:00 36.8 C 18 01/21/21 20:59 85 94 01/21/21 20:54 88 95 01/21/21 20:53 88 94 01/21/21 20:49 84 98 01/21/21 20:44 83 94 01/21/21 20:39 85 96 01/21/21 20:35 89 94 01/21/21 20:34 86 95 01/21/21 20:29 83 185/88 H 97 01/21/21 20:28 89 94 Transfer of Care Handoff Completed per policy Notes Mental Status: alert / awake / arousable Patient Amnestic to Procedure: Yes Nausea / Vomiting: adequately controlled Pain: adequately controlled Airway Patency, RR, SpO2: stable & adequate BP & HR: stable & adequate Hydration State: stable & adequate Neuraxial Anesthesia: was administered and sensory block is resolving Anesthetic Complications: no major complications apparent
[2021-01-22] MEDS: NIFEdipine EXTENDED REL 30 MG TABCR PO SCH (21:24)
[2021-01-22] MEDS: OXYTOCIN 20 UNITS in LACTATED RINGER'S 1,000 ML IV SCH (22:19)
[2021-01-22] MEDS: HYDROmorphone INJ 0.5 MG/0.5 ML SYR IV PRN (22:46)
[2021-01-22] MEDS: DOCUSATE SODIUM 100 MG CAP PO SCH (23:13)
[2021-01-22] MEDS: SIMETHICONE 80 MG CHEW PO SCH (23:34)
[2021-01-23] MEDS: KETOROLAC 30 MG/ML VIAL IV PRN ×3 (01:12→13:01)
--- NOTE | 2021-01-23 07:06 | Communication Note ---
Date of Service: January 23, 2021 Stable, no c/o H/A.
[2021-01-23 07:29] LABS: Basophils # (auto) 0.01 K/uL (0-0.2); Basophils % (auto) 0.1 %; Eosinophils # (auto) 0.09 K/uL (0-0.5); Hematocrit (blood only) 26.4 % (37-47); Hemoglobin 8.5 g/dL (12.0-16.0); Immature Granulocytes # (auto) 0.02 K/uL (0.00-0.02); Immature Granulocytes % (auto) 0.2 %; Lymphocytes # (auto) 1.23 K/uL (1.2-3.4); Lymphocytes % (auto) 13.2 %; Mean Corpuscular Hemoglobin 28.5 pg (25-34); Mean Corpuscular Hgb Conc 32.2 g/dL (32-36); Mean Corpuscular Volume 88.6 fL (80-100); Mean Platelet Volume 8.8 fL (7.4-10.4); Monocytes # (auto) 0.65 K/uL (0.11-0.59); Neutrophils # (auto) 7.34 K/uL (1.4-6.5); Neutrophils % (auto) 78.5 %; Platelet Count 306 K/uL (130-400); RDW Coefficient of Variation 13.3 % (11.5-14.5); RDW Standard Deviation 43.6 fL (36.4-46.3); Red Blood Count 2.98 M/uL (4.2-5.4); White Blood Count 9.34 K/uL (4.8-10.8)
--- NOTE | 2021-01-23 07:57 | Obstetrical Progress Note ---
Date of Service January 23, 2021 Assessment & Plan (1) Severe pre-eclampsia affecting childbirth: (2) Chronic hypertension affecting : (3) Insulin controlled gestational diabetes mellitus (GDM) during : (4) Supervision of elderly primigravida: (5) Encounter for care and examination after delivery: Subjective Ambulation: ambulating normally Voiding: no voiding problems Diet Tolerance:: regular diet Lochia:: Moderate Physical Exam Constitutional WD/WN, vitals as above Respiratory normal respiratory effort; no respiratory distress and no labored breathing Gastrointestinal (Abdomen) Inspection/Auscultation: abdomen normal to inspection; abdomen not distended Percussion/Palpation: abdomen soft; abdomen nontender, no guarding and abdomen not rigid Incision C/D/I Neurologic patellar DTR's 2+ bilat, sensation intact Genitourinary OB Exam Abdomen: + fundal height Fundus: + firm and + relation to umbilicus (Below); not tender and not boggy Results & Data ([facility] [place]) Vital Signs (Past 12 Hours) Vital Signs Temp Pulse Pulse Resp BP BP Pulse Ox 01/23/21 07:53 79 98/47 L 89 L 01/23/21 07:52 77 90 01/23/21 07:47 83 92 01/23/21 07:42 90 92 01/23/21 07:37 89 96 01/23/21 07:33 89 89 L 01/23/21 07:32 86 89 L 01/23/21 07:27 82 92 01/23/21 07:24 83 85 L 01/23/21 07:22 82 93 01/23/21 07:20 20 94 01/23/21 07:17 82 89 L 01/23/21 07:12 74 91 01/23/21 07:10 76 85 L 01/23/21 07:08 69 96 01/23/21 07:03 75 97 01/23/21 06:58 75 96 01/23/21 06:53 74 89 L 01/23/21 06:50 71 104/53 L 01/23/21 06:48 76 95 01/23/21 06:43 76 94 01/23/21 06:40 75 91 01/23/21 06:38 66 96 01/23/21 06:33 78 90 01/23/21 06:29 76 84 L 01/23/21 06:28 75 98 01/23/21 06:23 76 97 01/23/21 06:18 74 95 01/23/21 06:14 78 91 01/23/21 06:13 75 95 01/23/21 06:08 73 96 01/23/21 06:03 76 98 01/23/21 05:58 75 97 01/23/21 05:53 76 97 01/23/21 05:48 83 98 01/23/21 05:43 76 96 01/23/21 05:41 81 89 L 01/23/21 05:38 75 94 01/23/21 05:35 78 89 L 01/23/21 05:33 79 91 01/23/21 05:29 73 90 01/23/21 05:28 73 91 01/23/21 05:23 70 91 01/23/21 05:18 77 91 01/23/21 05:15 18 98 01/23/21 05:13 73 90 01/23/21 05:08 74 91 01/23/21 05:07 74 91 01/23/21 05:03 73 94 01/23/21 05:00 72 90 01/23/21 04:58 73 94 01/23/21 04:53 71 92 01/23/21 04:50 71 84/47 L 01/23/21 04:48 72 95 01/23/21 04:43 70 93 01/23/21 04:38 72 95 01/23/21 04:33 71 95 01/23/21 04:28 72 94 01/23/21 04:23 70 93 01/23/21 04:18 73 93 01/23/21 04:17 71 91 01/23/21 04:15 18 92 01/23/21 04:13 71 95 01/23/21 04:09 70 90 01/23/21 04:08 77 94 01/23/21 04:03 72 92 01/23/21 03:59 75 91 01/23/21 03:58 68 96 01/23/21 03:53 71 91 01/23/21 03:52 72 90 01/23/21 03:50 67 96/53 L 01/23/21 03:48 71 91 01/23/21 03:45 69 91 01/23/21 03:43 71 92 01/23/21 03:38 70 90 01/23/21 03:33 69 94 01/23/21 03:32 69 91 01/23/21 03:28 73 82 L 01/23/21 03:27 69 86/51 L 01/23/21 03:26 68 89 L 01/23/21 03:23 71 92 01/23/21 03:18 72 90 01/23/21 03:16 73 90 01/23/21 03:15 36.3 C L 16 01/23/21 03:13 76 88 L 01/23/21 03:10 72 90 01/23/21 03:08 71 91 01/23/21 03:05 69 91 01/23/21 03:03 70 92 01/23/21 02:58 71 91 01/23/21 02:53 71 89 L 01/23/21 02:51 80 91 01/23/21 02:48 75 93 01/23/21 02:45 71 90 01/23/21 02:43 71 93 01/23/21 02:40 72 90 01/23/21 02:38 70 93 01/23/21 02:33 73 91 01/23/21 02:28 76 91 01/23/21 02:23 73 90 01/23/21 02:22 71 94/52 L 01/23/21 02:18 71 93 01/23/21 02:15 18 94 01/23/21 02:13 72 92 01/23/21 02:08 69 90 01/23/21 02:03 70 92 01/23/21 01:58 73 92 01/23/21 01:56 68 91 01/23/21 01:53 70 86 L 01/23/21 01:51 72 90 01/23/21 01:48 69 92 01/23/21 01:45 68 90 01/23/21 01:43 67 90 01/23/21 01:38 69 82 L 01/23/21 01:33 66 87 L 01/23/21 01:31 71 89 L 01/23/21 01:28 68 93 01/23/21 01:24 67 89 L 01/23/21 01:23 70 96 01/23/21 01:18 71 97 01/23/21 01:15 18 97 01/23/21 01:13 80 95 01/23/21 01:08 81 96 01/23/21 01:06 78 90 01/23/21 01:03 81 97 01/23/21 00:58 75 91 01/23/21 00:53 82 88 L 01/23/21 00:49 72 101/51 L 01/23/21 00:48 74 89 L 01/23/21 00:46 72 88 L 01/23/21 00:43 73 94 01/23/21 00:39 72 91 01/23/21 00:38 70 92 01/23/21 00:33 74 91 01/23/21 00:31 71 91 01/23/21 00:28 71 87 L 01/23/21 00:24 73 87 L 01/23/21 00:23 76 90 01/23/21 00:19 72 90 01/23/21 00:18 77 94 01/23/21 00:15 18 90 01/23/21 00:13 74 94 01/23/21 00:12 72 90 01/23/21 00:07 74 87 L 01/23/21 00:06 73 89 L 01/23/21 00:02 72 90 01/23/21 00:01 75 90 01/22/21 23:57 74 90 01/22/21 23:55 72 91 01/22/21 23:52 71 91 01/22/21 23:49 73 102/54 L 91 01/22/21 23:47 73 92 01/22/21 23:43 74 91 01/22/21 23:42 73 92 01/22/21 23:37 73 91 01/22/21 23:34 73 91 01/22/21 23:32 70 93 01/22/21 23:28 74 88 L 01/22/21 23:27 73 80 L 01/22/21 23:22 72 91 01/22/21 23:21 73 90 01/22/21 23:17 73 95 01/22/21 23:15 36.5 C 18 01/22/21 23:13 72 90 01/22/21 23:12 71 88 L 01/22/21 23:08 71 88 L 01/22/21 23:07 69 87 L 01/22/21 23:02 74 86 L 01/22/21 23:00 70 89 L 01/22/21 22:57 70 87 L 01/22/21 22:53 74 89 L 01/22/21 22:52 76 95 01/22/21 22:49 76 113/61 01/22/21 22:47 75 87 L 01/22/21 22:43 74 90 01/22/21 22:42 76 94 01/22/21 22:37 79 94 01/22/21 22:33 83 87 L 01/22/21 22:32 91 H 97 01/22/21 22:27 92 H 95 01/22/21 22:26 98 H 80 L 01/22/21 22:22 88 93 01/22/21 22:17 85 96 01/22/21 22:15 18 01/22/21 22:12 81 60 L 01/22/21 22:11 80 84 L 01/22/21 22:07 80 95 01/22/21 22:04 78 91 01/22/21 22:02 80 97 01/22/21 21:57 78 97 01/22/21 21:52 82 97 01/22/21 21:49 125/70 01/22/21 21:47 105 H 96 01/22/21 21:44 71 123/58 L 01/22/21 21:42 80 98 01/22/21 21:37 81 95 01/22/21 21:32 78 99 01/22/21 21:28 79 116/67 01/22/21 21:27 81 98 01/22/21 21:22 77 92 01/22/21 21:18 70 115/66 01/22/21 21:17 69 96 01/22/21 21:15 18 01/22/21 21:12 77 89 L 01/22/21 21:07 70 97 01/22/21 21:03 73 91 01/22/21 21:02 68 94 01/22/21 20:58 70 118/63 01/22/21 20:57 67 97 01/22/21 20:52 70 100 01/22/21 20:48 72 117/63 01/22/21 20:47 67 100 01/22/21 20:42 68 100 01/22/21 20:39 74 110/56 L 01/22/21 20:37 64 83 L 01/22/21 20:36 66 88 L 01/22/21 20:32 63 97 01/22/21 20:29 67 94 01/22/21 20:28 68 116/58 L 01/22/21 20:27 75 96 01/22/21 20:22 78 92 01/22/21 20:19 78 105/57 L 01/22/21 20:17 82 94 01/22/21 20:15 81 18 105/57 L 91 01/22/21 20:12 80 87 L 01/22/21 20:05 70 18 101/54 L 81 L 01/22/21 19:55 65 18 99/51 L 93
[2021-01-23] MEDS: LEVOTHYROXINE SODIUM 50 MCG TABLET PO SCH (08:40)
[2021-01-23] MEDS: miSOPROStoL 200 MCG TAB PR ONE (08:42)
[2021-01-23] MEDS: DOCUSATE SODIUM 100 MG CAP PO SCH ×2 (08:59→21:05)
[2021-01-23] MEDS: SIMETHICONE 80 MG CHEW PO SCH ×4 (08:59→21:06)
[2021-01-23] MEDS: PRENATAL VITAMIN 1 TAB PO SCH (08:59)
[2021-01-23] MEDS: SERTRALINE HCL 100 MG TABLET PO SCH (08:59)
[2021-01-23] MEDS: FERROUS SULFATE 325 MG TAB PO SCH (08:59)
[2021-01-23] MEDS ORDERED: Nursing to Pharmacy Communication SCH (09:15)
[2021-01-23] MEDS: OXYTOCIN 20 UNITS in LACTATED RINGER'S 1,000 ML IV SCH (10:31)
[2021-01-23] MEDS: HYDROmorphone INJ 0.5 MG/0.5 ML SYR IV PRN (13:38)
--- NOTE | 2021-01-23 14:06 | Obstetrical Progress Note ---
Date of Service January 23, 2021 Assessment & Plan (1) Encounter for care and examination after delivery: VSS, satting 97-100 on RA during exam. Exam benign and wnl, belly appears bloated but no rebound or guarding. Likely due to severe gas pain as has not been able to move around much due to magnesium and duramorph. Encouraged to chew gum, will get binder and heat packs, attempt to have pt sit at side of bed to try to move gas. Admission and Anticipated Discharge Date Admission Date: January 21, 2021 Subjective Nursing reported pt feeling very painful in upper abdomen and shoulders. Feels like there is a lot of pressure in her chest. Pt reports to me significant pain in upper abdomen around ribs and in her right and left shoulders, not specifically in her chest. Belly feels very tight. Has not really passed any gas since delivery. Denies CP or SOB Physical Exam Constitutional: WD/WN, vitals as above Respiratory: normal respiratory effort, lungs clear to auscultation Cardiovascular: RRR, no murmur, no edema Gastrointestinal (Abdomen): Inspection/Auscultation: + abdomen distended and + abdominal surgical incision (c/d/i) Percussion/Palpation: + abdomen tender (appropriately tender) and abdomen soft Results & Data ([facility]) Vital Signs (Past 12 Hours) Vital Signs Temp Pulse Resp BP Pulse Ox 01/23/21 14:02 81 100 01/23/21 13:57 84 98 01/23/21 13:55 84 109/53 L 01/23/21 13:52 84 97 01/23/21 13:47 86 100 01/23/21 13:42 85 100 01/23/21 13:37 81 100 01/23/21 13:32 88 99 01/23/21 13:27 89 100 01/23/21 13:22 80 100 01/23/21 13:20 22 100 01/23/21 13:17 85 100 01/23/21 13:12 85 100 01/23/21 13:07 85 99 01/23/21 13:02 84 100 01/23/21 12:57 82 100 01/23/21 12:55 82 102/53 L 01/23/21 12:52 88 99 01/23/21 12:47 86 95 01/23/21 12:42 83 92 01/23/21 12:37 80 96 01/23/21 12:32 88 94 01/23/21 12:27 88 97 01/23/21 12:25 87 105/56 L 01/23/21 12:22 87 97 01/23/21 12:20 20 96 01/23/21 12:17 91 H 96 01/23/21 12:12 84 97 01/23/21 12:07 95 H 94 01/23/21 12:02 91 H 95 01/23/21 11:57 91 H 94 01/23/21 11:52 95 H 95 01/23/21 11:47 95 H 98 01/23/21 11:42 102 H 96 01/23/21 11:37 98 H 97 01/23/21 11:32 92 H 96 01/23/21 11:27 94 H 96 01/23/21 11:22 88 97 01/23/21 11:18 18 96 01/23/21 11:17 88 95 01/23/21 11:15 98.2 F 20 01/23/21 11:12 91 H 93 01/23/21 11:07 93 H 94 01/23/21 11:02 90 98 01/23/21 10:59 98 H 89 L 01/23/21 10:57 99 H 95 01/23/21 10:52 97 H 95 01/23/21 10:51 101 H 79 L 01/23/21 10:47 97 H 97 01/23/21 10:42 89 96 01/23/21 10:41 86 85 L 01/23/21 10:37 85 96 01/23/21 10:32 87 97 01/23/21 10:27 83 97 01/23/21 10:25 83 125/59 L 01/23/21 10:22 83 95 01/23/21 10:20 18 95 01/23/21 10:17 70 96 01/23/21 10:12 70 94 01/23/21 10:07 76 98 01/23/21 10:02 75 96 01/23/21 09:57 72 94 01/23/21 09:55 70 105/52 L 01/23/21 09:52 71 97 01/23/21 09:47 68 94 01/23/21 09:42 69 96 01/23/21 09:37 67 94 01/23/21 09:32 71 94 01/23/21 09:27 76 96 01/23/21 09:25 73 104/52 L 01/23/21 09:22 77 93 01/23/21 09:20 16 98 01/23/21 09:17 68 92 01/23/21 09:12 76 100 01/23/21 09:07 69 95 01/23/21 09:02 73 97 01/23/21 08:57 75 96 01/23/21 08:55 73 101/49 L 86 L 01/23/21 08:52 71 98 01/23/21 08:49 68 86 L 01/23/21 08:47 73 91 01/23/21 08:43 68 88 L 01/23/21 08:42 67 84 L 01/23/21 08:38 70 85 L 01/23/21 08:37 69 95 01/23/21 08:33 71 88 L 01/23/21 08:32 70 95 01/23/21 08:27 71 89 L 01/23/21 08:25 71 92/52 L 86 L 01/23/21 08:22 66 92 01/23/21 08:20 72 20 94 01/23/21 08:17 78 91 01/23/21 08:14 74 86 L 01/23/21 08:12 72 92 01/23/21 08:09 74 88 L 01/23/21 08:07 77 94 01/23/21 08:02 80 95 01/23/21 08:01 80 88 L 01/23/21 08:00 18 01/23/21 07:57 79 92 01/23/21 07:55 82 93/50 L 01/23/21 07:53 97.5 F L 79 98/47 L 89 L 01/23/21 07:52 77 90 01/23/21 07:47 83 92 01/23/21 07:42 90 92 01/23/21 07:37 89 96 01/23/21 07:33 89 89 L 01/23/21 07:32 86 89 L 01/23/21 07:27 82 92 01/23/21 07:24 83 85 L 01/23/21 07:22 82 93 01/23/21 07:20 20 94 01/23/21 07:17 82 89 L 01/23/21 07:12 74 91 01/23/21 07:10 76 85 L 01/23/21 07:08 69 96 01/23/21 07:03 75 97 01/23/21 06:58 75 96 01/23/21 06:53 74 89 L 01/23/21 06:50 71 104/53 L 01/23/21 06:48 76 95 01/23/21 06:43 76 94 01/23/21 06:40 75 91 01/23/21 06:38 66 96 01/23/21 06:33 78 90 01/23/21 06:29 76 84 L 01/23/21 06:28 75 98 01/23/21 06:23 76 97 01/23/21 06:18 74 95 01/23/21 06:14 78 91 01/23/21 06:13 75 95 01/23/21 06:08 73 96 01/23/21 06:03 76 98 01/23/21 05:58 75 97 01/23/21 05:53 76 97 01/23/21 05:48 83 98 01/23/21 05:43 76 96 01/23/21 05:41 81 89 L 01/23/21 05:38 75 94 01/23/21 05:35 78 89 L 01/23/21 05:33 79 91 01/23/21 05:29 73 90 01/23/21 05:28 73 91 01/23/21 05:23 70 91 01/23/21 05:18 77 91 01/23/21 05:15 18 98 01/23/21 05:13 73 90 01/23/21 05:08 74 91 01/23/21 05:07 74 91 01/23/21 05:03 73 94 01/23/21 05:00 72 90 01/23/21 04:58 73 94 01/23/21 04:53 71 92 01/23/21 04:50 71 84/47 L 01/23/21 04:48 72 95 01/23/21 04:43 70 93 01/23/21 04:38 72 95 01/23/21 04:33 71 95 01/23/21 04:28 72 94 01/23/21 04:23 70 93 01/23/21 04:18 73 93 01/23/21 04:17 71 91 01/23/21 04:15 18 92 01/23/21 04:13 71 95 01/23/21 04:09 70 90 01/23/21 04:08 77 94 01/23/21 04:03 72 92 01/23/21 03:59 75 91 01/23/21 03:58 68 96 01/23/21 03:53 71 91 01/23/21 03:52 72 90 01/23/21 03:50 67 96/53 L 01/23/21 03:48 71 91 01/23/21 03:45 69 91 01/23/21 03:43 71 92 01/23/21 03:38 70 90 01/23/21 03:33 69 94 01/23/21 03:32 69 91 01/23/21 03:28 73 82 L 01/23/21 03:27 69 86/51 L 01/23/21 03:26 68 89 L 01/23/21 03:23 71 92 01/23/21 03:18 72 90 01/23/21 03:16 73 90 01/23/21 03:15 97.3 F L 16 01/23/21 03:13 76 88 L 01/23/21 03:10 72 90 01/23/21 03:08 71 91 01/23/21 03:05 69 91 01/23/21 03:03 70 92 01/23/21 02:58 71 91 01/23/21 02:53 71 89 L 01/23/21 02:51 80 91 01/23/21 02:48 75 93 01/23/21 02:45 71 90 01/23/21 02:43 71 93 01/23/21 02:40 72 90 01/23/21 02:38 70 93 01/23/21 02:33 73 91 01/23/21 02:28 76 91 01/23/21 02:23 73 90 01/23/21 02:22 71 94/52 L 01/23/21 02:18 71 93 01/23/21 02:15 18 94 01/23/21 02:13 72 92 01/23/21 02:08 69 90 PG Care Time/CCT Total # of Minutes Spent Total Time Spent with Patient: Total time spent is greater than 50% in coordination of care (as documented) at patient's floor/unit and/or counseling patient: Coding Level of Care Code None Diagnoses Encounter for care and examination after delivery Z39.2
[2021-01-23] MEDS ORDERED: DC INTRASPINAL MORPHINE SCH (18:29)
[2021-01-23] MEDS ORDERED: PROMETHAZINE HCL 25 MG in SODIUM CHLORIDE 0.9% 50 ML IV PRN (18:30)
[2021-01-23] MEDS ORDERED: KETOROLAC 30 MG/ML VIAL IV PRN (18:30)
[2021-01-23] MEDS ORDERED: diphenhydrAMINE 50 MG/ML VIAL IV PRN (18:30)
[2021-01-23] MEDS ORDERED: diphenhydrAMINE Capsule 25 MG CAP PO PRN (18:30)
[2021-01-23] MEDS ORDERED: ONDANSETRON INJ 2 MG/ML 2 ML VIAL IV PRN (18:30)
[2021-01-23] MEDS: oxyCODONE/ACETAMINOPHEN 5mg/325mg TAB PO PRN (19:24)
[2021-01-23] MEDS ORDERED: bisacodyL 5 MG TABEC PO SCH (20:00)
[2021-01-23] MEDS: NIFEdipine EXTENDED REL 30 MG TABCR PO SCH (21:06)
[2021-01-24] MEDS: oxyCODONE/ACETAMINOPHEN 5mg/325mg TAB PO PRN ×2 (06:07→12:37)
[2021-01-24] MEDS: IBUPROFEN 600 MG TAB PO SCH ×4 (06:08→18:00)
[2021-01-24] MEDS: LEVOTHYROXINE SODIUM 50 MCG TABLET PO SCH (06:09)
[2021-01-24 06:28] LABS: Hematocrit (blood only) 20.1 % (37-47); Hemoglobin 6.6 g/dL (12.0-16.0)
[2021-01-24] MEDS ORDERED: SODIUM CHLORIDE 0.9% 250 ML IV PRN (07:29)
--- NOTE | 2021-01-24 07:47 | Obstetrical Progress Note ---
Date of Service January 24, 2021 Assessment & Plan (1) Encounter for care and examination after delivery: 40 yo POD2 from [facility] for FTP in the setting of chronic HTN w/ superimposed pre-eclampsia w/ sf, now s/p mag, doing well -Anemia - H/H this AM 6.6. On evaluation, is asymptomatic from anemia standpoint other than fatigue and ambulated multiple times on the unit last evening without difficulty. VSS. Abdomen is less distended than yesterday and she is less painful than yesterday. Vaginal bleeding is small. Clinically does not appear that she is actively bleeding, more likely this is hemoglobin settling from prolonged labor course and delivery. Repeat h/h ordered, discussed transfusion and risks associated with it. Pt amenable to 1u transfusion, will check h/h to ensure appropriate rise 1 hour after. -cHTN w super imposed pre-eclampsia - home nifedipine given last evening, continue to monitor. No s/s worsening pre-eclampsia. -Meeting all pp milestones now. Gas pain is much improved now that pt is ambulating, passing flatus, and belching. Abdomen is getting softer, does appear bloated still but is also decreased in size. Continue routine pp care -AB+/rubella immune/ Subjective Ambulation: ambulating normally Voiding: no voiding problems Passing Gas:: Yes Diet Tolerance:: regular diet (advancing slowly) Lochia:: Small Feeding Type:: breast feeding Pain managed with medication Review of Systems Denies fevers, chills, n/v, DO, CP, SOB, lightheadedness/dizziness. Was able to ambulate multiple times last night without lightheadedness/dizziness. Is both belching and passing gas now, feels much improved from yesterday. Feels like belly is softer than yesterday. Physical Exam Constitutional WD/WN, vitals as above no acute distress Respiratory normal respiratory effort, lungs clear to auscultation Cardiovascular RRR, no murmur, no edema Gastrointestinal (Abdomen) Inspection/Auscultation: + abdominal surgical incision (c/d/i) Percussion/Palpation: abdomen soft; abdomen nontender fundus firm at umbilicus and NT Musculoskeletal BLE symmetric, nonerythematous, nontender Results & Data ([facility]) Vital Signs (Past 12 Hours) Vital Signs Temp Pulse Resp BP 01/23/21 23:50 98.4 F 80 18 116/67 Laboratory Results 01/24/21 Range/Units 05:45 Hgb 6.6 L* (12.0-16.0) g/dL Hct 20.1 L* (37-47) %
[2021-01-24 08:09] LABS: Hematocrit (blood only) 19.1 % (37-47); Hemoglobin 6.5 g/dL (12.0-16.0)
[2021-01-24] MEDS: FERROUS SULFATE 325 MG TAB PO SCH (09:14)
[2021-01-24] MEDS: PRENATAL VITAMIN 1 TAB PO SCH (09:14)
[2021-01-24] MEDS: SIMETHICONE 80 MG CHEW PO SCH ×4 (09:14→20:56)
[2021-01-24] MEDS: DOCUSATE SODIUM 100 MG CAP PO SCH ×2 (09:14→20:56)
[2021-01-24] MEDS: ACETAMINOPHEN 325 MG TAB PO PRN (09:18)
[2021-01-24] MEDS: SERTRALINE HCL 100 MG TABLET PO SCH (09:18)
[2021-01-24 12:33] LABS: Hematocrit (blood only) 24.1 % (37-47); Hemoglobin 8.1 g/dL (12.0-16.0)
[2021-01-24] MEDS ORDERED: bisacodyL 10 MG SUPP PR PRN ×2 (18:07→19:17)
[2021-01-24] MEDS: NIFEdipine EXTENDED REL 30 MG TABCR PO SCH (20:56)
[2021-01-25] MEDS: IBUPROFEN 600 MG TAB PO SCH ×4 (00:16→18:32)
[2021-01-25 05:55] LABS: Hematocrit (blood only) 21.9 % (37-47); Hemoglobin 7.1 g/dL (12.0-16.0)
[2021-01-25] MEDS: LEVOTHYROXINE SODIUM 50 MCG TABLET PO SCH (06:10)
[2021-01-25] MEDS: oxyCODONE/ACETAMINOPHEN 5mg/325mg TAB PO PRN ×4 (07:37→21:44)
--- NOTE | 2021-01-25 07:53 | Obstetrical Progress Note ---
Date of Service January 25, 2021 Assessment & Plan (1) Severe pre-eclampsia affecting childbirth: (2) delivery delivered: Patient doing much better. Plan d/c today. INstructions reviewed. Close f/u for blood pressure check the end of the week. cbc still pending this am, but unless very low, she is doing so well, will just f/u on a pp basis. Ambulating independently without symptoms. BPs are ok. A couple are a little elevated, but overall ok. no s/s of worsening disease. Day #:: 3 Subjective Ambulation: ambulating normally Voiding: no voiding problems Passing Gas:: Yes Diet Tolerance:: regular diet Lochia:: Small Feeding Type:: breast feeding Patient feeling so much better today. Got a unit of blood. Pain fairly well controlled. Still has some gas pain but belly definitely softer and passing gas. Physical Exam Constitutional WD/WN, vitals as above Respiratory normal respiratory effort, lungs clear to auscultation Cardiovascular RRR, no murmur, no edema Extremities: + edema (+1-2); no calf tenderness Gastrointestinal (Abdomen) soft, slightly distended , slight tympany, ff/appro tender at u. incision c/d/i. Psychiatric A+Ox3, euthymic affect Results & Data ([facility]) Vital Signs (Past 12 Hours) Vital Signs Temp Pulse Pulse Resp BP BP Pulse Ox 01/25/21 00:00 37.1 C 93 H 18 139/87 98 01/24/21 20:05 37.3 C 85 18 153/88 H 99
[2021-01-25] MEDS ORDERED: SODIUM CHLORIDE 0.9% 250 ML IV PRN (08:04)
[2021-01-25] MEDS ORDERED: diphenhydrAMINE Capsule 25 MG CAP PO ONE (08:04)
[2021-01-25] MEDS ORDERED: ACETAMINOPHEN 325 MG TAB PO ONE (08:05)
--- NOTE | 2021-01-25 08:08 | Communication Note ---
Date of Service: January 25, 2021 hgb 7.1 this am. Do not think she is actively bleeding at this time. So much better clinically, but did offer her another unit as it might help with fatigue when she is at home. She is agreeable. After seeing the patient and preparing for d/c, nursing came up to me expressing concerns about baby care. She is breast feeding but only has been able to do so once or twice. Have not really been able to do alot of baby care. She feels she needs more nursing care today. Plan for d/c later today if all goes well. However, if nursing has concerns about anything, she does get another overnight stay and will d/c tomorrow.
[2021-01-25] MEDS: PRENATAL VITAMIN 1 TAB PO SCH (08:30)
[2021-01-25] MEDS: SIMETHICONE 80 MG CHEW PO SCH ×4 (08:34→22:18)
[2021-01-25] MEDS: FERROUS SULFATE 325 MG TAB PO SCH (08:34)
[2021-01-25] MEDS: DOCUSATE SODIUM 100 MG CAP PO SCH ×2 (08:34→22:19)
[2021-01-25] MEDS: SERTRALINE HCL 100 MG TABLET PO SCH (08:36)
[2021-01-25 10:53] LABS: Albumin Globulin Ratio 0.5 (0.9-2); Albumin Level 2.1 gm/dl (3.4-5.0); BUN Creatinine Ratio 16.9 (10-20); Calcium 7.9 mg/dl (8.5-10.1); Creatinine Clr Calc Pharmacy 132.6 ml/min; Est GFR (African American) 130.7 ml/min; Est GFR (Non-African American) 112.8 ml/min; Potassium 4.1 mmol/L (3.5-5.1); Total Protein 6.1 gm/dl (6.4-8.2)
[2021-01-25 10:54] LABS: Bilirubin,Total 0.4 mg/dl (0.2-1)
[2021-01-25] MEDS: NIFEdipine EXTENDED REL 30 MG TABCR PO SCH (16:43)
--- NOTE | 2021-01-25 18:02 | Communication Note ---
Date of Service: January 25, 2021 Have been following blood pressures all day. Overall she has done well with baby care activities and breast feeding today. Has ambulated. She continues to note issues with bloating and abdominal /gas discomfort. Did receive one unit of blood. Gave her Nifedipine XL 30 mg early this evening. She usually gets this at bedtime. Has been on this medication since before the . She has no s/s/ of pet or worsening of her disease. Labs were normal this am. bps running 160s/90s, occasional 170. Patient really feels her GI distress is contributing to her increased bp from pain-- it is pulstaing and feeling it moving around. Does have a hx of chronic constipation in the past and feels like she has been in this position when she has had to take pain meds and once had to come to the ED for enemas. I discussed using milk of mag and ducolax. She really feels this is not going to work for her. When she gets like this, the only thing that has worked for her is mag citrate and he would really like that. I will order. She continues to pass gas so don't think she is obstructed.
[2021-01-25] MEDS ORDERED: MAGNESIUM CITRATE 296 ML/BTL PO STA (18:13)
[2021-01-25] MEDS ORDERED: NIFEdipine 10 MG CAP PO STA (19:55)
--- NOTE | 2021-01-25 19:59 | Obstetrical Progress Note ---
Date of Service January 25, 2021 Assessment & Plan (1) delivery delivered: given persistently elevated blood pressures throughout the day, don't think the extended release is controlling her BP. Will plan to changed to nifedipine 20mg TID (max dose 120mg). Will give the first dose now as pressures still elevated got a systolic of 190 with a repeat of 170. Continue to monitor closely. Subjective When I arrive this evening, patient is ambulating in the greene. she notes her belly feels harder and more distended. She notes she recently took her mag citrate. She denies any sx of pet. Physical Exam Constitutional WD/WN, vitals as above Gastrointestinal (Abdomen) distended, soft, appropriately tender. Psychiatric A+Ox3, euthymic affect Results & Data ([facility]) Vital Signs (Past 12 Hours) Vital Signs Temp Pulse Pulse Resp BP BP BP 01/25/21 17:47 160/83 H 01/25/21 17:46 162/95 H 01/25/21 16:32 169/93 H 01/25/21 15:59 37.0 C 89 16 155/91 H 163/89 H 01/25/21 15:25 37.0 C 89 16 163/89 H 01/25/21 11:50 37.1 C 85 16 149/95 H 01/25/21 10:50 37.2 C 86 16 168/76 H 01/25/21 09:50 36.8 C 90 18 179/94 H 01/25/21 09:20 36.8 C 85 18 176/94 H 01/25/21 09:07 36.8 C 96 H 18 162/95 H 01/25/21 08:50 36.8 C 87 18 162/91 H 01/25/21 08:10 36.9 C 89 16 155/91 H Pulse Ox 01/25/21 17:47 01/25/21 17:46 01/25/21 16:32 01/25/21 15:59 99 01/25/21 15:25 99 01/25/21 11:50 100 01/25/21 10:50 100 01/25/21 09:50 96 01/25/21 09:20 100 01/25/21 09:07 98 01/25/21 08:50 99 01/25/21 08:10 100
[2021-01-25] MEDS: NIFEdipine 10 MG CAP PO SCH (22:18)
[2021-01-26] MEDS ORDERED: NIFEdipine 10 MG CAP PO SCH
[2021-01-26] MEDS: IBUPROFEN 600 MG TAB PO SCH ×3 (00:18→12:31)
[2021-01-26] MEDS: oxyCODONE/ACETAMINOPHEN 5mg/325mg TAB PO PRN ×3 (03:44→12:31)
[2021-01-26] MEDS: LEVOTHYROXINE SODIUM 50 MCG TABLET PO SCH (06:25)
[2021-01-26 06:48] LABS: Hematocrit (blood only) 24.8 % (37-47); Hemoglobin 8.1 g/dL (12.0-16.0); Mean Corpuscular Hemoglobin 29.1 pg (25-34); Mean Corpuscular Hgb Conc 32.7 g/dL (32-36); Mean Corpuscular Volume 89.2 fL (80-100); Mean Platelet Volume 8.9 fL (7.4-10.4); Platelet Count 410 K/uL (130-400); RDW Coefficient of Variation 14.4 % (11.5-14.5); Red Blood Count 2.78 M/uL (4.2-5.4); White Blood Count 11.51 K/uL (4.8-10.8)
--- NOTE | 2021-01-26 07:03 | Obstetrical Progress Note ---
Date of Service <Shannon Cárdenas MD - Last Filed: 01/26/21 07:47> January 26, 2021 Assessment & Plan <Shannon Cárdenas MD - Last Filed: 01/26/21 07:47> (1) Severe pre-eclampsia affecting childbirth: (2) Stomach problems: (3) Chronic hypertension affecting : Subjective <Shannon Cárdenas MD - Last Filed: 01/26/21 07:47> Post * Ms. Cole is a 40 y/o female who is POD #4 following for FTP in the setting of chronic HTN w/ superimposed pre-eclampsia w/ sf at 37 WGA. She reports feeling well overall this morning. She denies abdominal cramping but admits to 6/10 pain currently managed on analgesics. Voiding well. Tolerating meals overnight and able to ambulate some. She is passing gas and has had a bowel movement. Has some small lochia with some improvement this morning. Currently breast feeding. Review of Systems Denies fever, chills, sweats Denies shortness of breath, difficulty breathing, chest pain, chest pressure but admits to palpitations overnight. Denies breast pain. Denies dysuria. Denies headache or changes in vision. Physical Exam <Shannon Cárdenas MD - Last Filed: 01/26/21 07:47> General: Alert, oriented. No acute distress. Cardiac: Regular rate and rhythm, no murmurs/rubs/gallops. Respiratory: Clear to auscultation bilaterally a/p, no wheezes/rales/rhonchi. No increased work of breathing. Symmetrical chest rise. No respiratory distress. Abdomen: Soft, tender at site of incision, slightly distended. Bowel sounds present. Uterus: Uterine fundus firm. Surgical scar clean and healing well. Lower Extremities: Some lower extremity edema or swelling. No deep calf pain. Results & Data ([facility]) <Shannon Cárdenas MD - Last Filed: 01/26/21 07:47> Vital Signs (Past 12 Hours) Vital Signs Temp Pulse Resp BP BP Pulse Ox 01/26/21 03:40 83 152/96 H 01/26/21 00:10 36.9 C 90 16 151/83 H 100 07/11/21 22:35 90 20 145/77 H 01/25/21 20:10 144/100 H 01/25/21 19:40 37.2 C 81 18 177/103 H 192/96 H 100 <Radha Linares MD, FACOG - Last Filed: 01/26/21 07:51> Co-Signing Physician Notes Resident Physician Supervision Note: I interviewed and examined the patient. Discussed with Dr. Jamilulate and agree with findings and plan as documented in the note. Any exceptions or clarifications are listed here: Patient doing much better. Mag citrate helped with constipation and gas pain. Switch to tid dosing of nifedipine seems to be working better. Plan d/c home if bp ok at noon check. f/u in the office on . Good response to another unit of blood. Documented By: Radha Linares MD, FACOG
[2021-01-26 07:09] LABS: Albumin Level 2.1 gm/dl (3.4-5.0); BUN Creatinine Ratio 26.8 (10-20); Calcium 8.1 mg/dl (8.5-10.1); Creatinine Clr Calc Pharmacy 195.8 ml/min; Est GFR (African American) 148.6 ml/min; Est GFR (Non-African American) 128.2 ml/min
[2021-01-26 07:12] LABS: Albumin Globulin Ratio 0.5 (0.9-2); Bilirubin,Total 0.3 mg/dl (0.2-1); Globulin 3.8 gm/dl (2.5-4.0); Total Protein 5.9 gm/dl (6.4-8.2)
[2021-01-26] MEDS: PRENATAL VITAMIN 1 TAB PO SCH (08:26)
[2021-01-26] MEDS: FERROUS SULFATE 325 MG TAB PO SCH (08:26)
[2021-01-26] MEDS: DOCUSATE SODIUM 100 MG CAP PO SCH (08:27)
[2021-01-26] MEDS: SERTRALINE HCL 100 MG TABLET PO SCH (08:27)
[2021-01-26] MEDS: SIMETHICONE 80 MG CHEW PO SCH ×2 (08:27→12:32)
[2021-01-26] MEDS: NIFEdipine 10 MG CAP PO SCH (08:43)
--- NOTE | 2021-01-31 02:37 | Discharge Summary (DS) ---
DATE OF DISCHARGE: 01/26/2021. HOSPITAL COURSE: The patient was admitted for chronic hypertension with superimposed preeclampsia wi th severe features. The patient did receive blood pressure medications for acute blood pressure cont rol. She was started on magnesium for seizure prophylaxis and was initiated with labor induction. A Mijares catheter was initially placed as well as she is being started on oxytocin. After the Mijares ca me out, the patient was started on regular dose oxytocin, which was titrated up to 30, at which time it was discontinued for 30 minutes and restarted. The patient did undergo artificial rupture of memb ranes for clear fluid. The Pitocin was then restarted and titrated up to 40, at which time the patie nt was noted to have no cervical change and was still 3 cm dilated with a thick cervix and the baby w as at negative 3 station. After the second full titration of Pitocin, the patient opted to proceed w ith a primary section. The section was performed without complication. The patien t was continued on magnesium. Twelve hours post delivery, the patient was noted to be normotensive. Labs were normal. The patient was asymptomatic. Decision was made to remove the patient off of mag nesium. She was also diuresing adequately. The patient remained in-house without additional complic ations until postoperative day 3, at which time she was noted to start having severe range blood pres sures again. The patient's nifedipine was increased up to 30 mg 3 times a day. This did control the patient's blood pressure. She was able to be discharged later on postoperative day #4. The patient was discharged home in stable condition with a 1-week blood pressure check. The patient was provide d both written and verbal discharge instructions. Job ID: [id number]
== END 2021-01-26 13:10 | disposition home or self-care (01) | DRG 788 ==
LOC: OPB 10:00 → 4S1 10:03 → 4S2 01-22 19:06